=== PATIENT | female | born 1950 | race Caucasian/White ===

== ENCOUNTER 2019-11-15 12:35 | Inpatient (IN) ==
[2019-11-15] MEDS ORDERED: DEXTROSE 50% 25 GM/50 ML VIAL IV PRN ×2 (16:55→17:25)
[2019-11-15] MEDS ORDERED: GLUCAGON 1 MG VIAL IM PRN (16:55)
[2019-11-15] MEDS ORDERED: POTASSIUM CHLORIDE 20 MEQ TABLET PO ONE (17:43)
[2019-11-15 18:14] LABS: Ferritin 366.5 ng/ml (8-252)
[2019-11-15] MEDS: INSULIN REGULAR 100 UNIT/ML SUBCUT SCH (20:28)
[2019-11-15] MEDS: ENOXAPARIN 30 MG/0.3 ML SYRINGE SUBCUT SCH (21:30)
[2019-11-15] MEDS: DOCUSATE SODIUM 100 MG CAPSULE PO PRN (21:30)
[2019-11-16] MEDS ORDERED: methylPREDNISolone SOD SUC 40 MG/1 ML VIAL IV ONE (03:56)
[2019-11-16] MEDS: ALBUTEROL INHALER 18 GM INH SCH ×3 (06:35→18:13)
[2019-11-16] MEDS: INSULIN REGULAR 100 UNIT/ML SUBCUT SCH ×4 (07:41→20:38)
[2019-11-16] MEDS: ASCORBIC ACID 500 MG TABLET PO SCH (08:29)
[2019-11-16] MEDS: DEXAMETHASONE 10 MG/1 ML VIAL IV SCH (08:29)
[2019-11-16] MEDS: ZINC SULFATE 220 MG CAPSULE PO SCH (08:29)
[2019-11-16] MEDS ORDERED: AZITHROMYCIN INJ 500 MG in SODIUM CHLORIDE 0.9% 250 ML IV SCH (09:00)
[2019-11-16] MEDS: cefTRIAXone 1,000 MG in SYRINGE 1 EACH IV SCH (09:36)
[2019-11-16 10:02] LABS: Basophils % 0.2 % (0.0-0.8); Hematocrit 23.1 VOL% (35.7-47.0); Hemoglobin 7.4 GM/DL (12.0-16.0); Immature Granulocytes % 0.9 %; Immature Granulocytes Absolute 0.12 #; Lymphocytes # 0.3 10*3/uL (1.4-4.0); Lymphocytes % 1.9 % (21.3-54.2); Mean Corpuscular Volume 89.5 FL (87-102); Mean Platelet Volume 9.4 FL (9.6-12.0); Monocytes % 2.2 % (1.7-12.7); Neutrophils % 94.8 % (38.7-73.9); Platelet Count 332 T/CUMM (130-400); Red Blood Count 2.58 MC/CUMM (3.8-5.5); Red Cell Distribution Width 14.2 % (9.3-17.3); White Blood Count 12.9 T/CUMM (4-12)
[2019-11-16 10:26] LABS: Band Neutrophils 5 % (0-10); Hypochromasia 1+; Lymphocytes 2 % (20-55); Segmented Neutrophils 92 % (50-85); Total Cells Counted 100
[2019-11-16 10:27] LABS: Microcytosis 1+; Platelet Estimate Normal
[2019-11-16 10:40] LABS: Albumin 2.4 G/DL (3.4-5.0); Bilirubin,Total 0.5 MG/DL (0.2-1.0); Calcium 9.1 MG/DL (8.5-10.1); Ferritin 406.6 ng/ml (8-252); Osmolality,Calculated 288.2 MOS/KG (273-304); Total Protein 7.4 G/DL (6.4-8.3)
[2019-11-16] MEDS: POTASSIUM CHLORIDE 20 MEQ TABLET PO PRN ×3 (11:45→16:52)
[2019-11-16] MEDS: ENOXAPARIN 30 MG/0.3 ML SYRINGE SUBCUT SCH (20:39)
[2019-11-16] MEDS: ZALEPLON 5 MG CAPSULE PO PRN ×2 (21:23→22:49)
[2019-11-16] MEDS ORDERED: LORazepam 2 MG/1 ML VIAL IV ONE (22:55)
[2019-11-17] MEDS: ALBUTEROL INHALER 18 GM INH SCH ×4 (00:57→20:24)
[2019-11-17] MEDS: ACETAMINOPHEN 325 MG TABLET PO PRN (01:37)
[2019-11-17] MEDS: ZINC SULFATE 220 MG CAPSULE PO SCH (09:20)
[2019-11-17] MEDS: ASCORBIC ACID 500 MG TABLET PO SCH (09:20)
[2019-11-17] MEDS: INSULIN REGULAR 100 UNIT/ML SUBCUT SCH ×4 (09:21→20:30)
[2019-11-17] MEDS: DEXAMETHASONE 10 MG/1 ML VIAL IV SCH (09:21)
[2019-11-17] MEDS: cefTRIAXone 1,000 MG in SYRINGE 1 EACH IV SCH (09:22)
[2019-11-17] MEDS ORDERED: SODIUM CHLORIDE 0.9% 1,000 ML IV PRN (12:02)
[2019-11-17 13:35] LABS: Hematocrit 25.2 VOL% (35.7-47.0); Hemoglobin 8.1 GM/DL (12.0-16.0)
[2019-11-17 14:00] LABS: % Iron Saturation 6.4 % (18-50)
[2019-11-17] MEDS ORDERED: LORazepam 1 MG TABLET PO ONE (16:53)
[2019-11-17 20:01] LABS: ABG Base Excess 3.2 MMOL/L (-2.5-2.5); ABG HCO3 27.3 MMOL/L (20-26); ABG PCO2 54.3 MM HG (35-48); ABG PH 7.345 (7.35-7.45); ABG TCO2 27.8 MMOL/L (23-27)
[2019-11-17] MEDS: ENOXAPARIN 30 MG/0.3 ML SYRINGE SUBCUT SCH (20:24)
[2019-11-17] MEDS ORDERED: LORazepam 2 MG/1 ML VIAL IV ONE (22:42)
[2019-11-18] MEDS: ALBUTEROL INHALER 18 GM INH SCH ×3 (00:59→19:41)
[2019-11-18 05:48] LABS: Basophils % 0.1 % (0.0-0.8); Hematocrit 24.8 VOL% (35.7-47.0); Hemoglobin 7.7 GM/DL (12.0-16.0); Immature Granulocytes % 2.3 %; Immature Granulocytes Absolute 0.36 #; Lymphocytes # 0.5 10*3/uL (1.4-4.0); Lymphocytes % 3.1 % (21.3-54.2); Mean Corpuscular Volume 92.2 FL (87-102); Mean Platelet Volume 9.5 FL (9.6-12.0); Monocytes % 4.1 % (1.7-12.7); Neutrophils % 90.4 % (38.7-73.9); Platelet Count 501 T/CUMM (130-400); Red Blood Count 2.69 MC/CUMM (3.8-5.5); Red Cell Distribution Width 14.7 % (9.3-17.3); White Blood Count 15.7 T/CUMM (4-12)
[2019-11-18 06:00] LABS: Calcium 9.9 MG/DL (8.5-10.1); Osmolality,Calculated 304.3 MOS/KG (273-304)
[2019-11-18 06:07] LABS: Band Neutrophils 1 % (0-10); Hypochromasia 2+; Lymphocytes 2 % (20-55); Microcytosis 1+; Platelet Estimate Increased; Segmented Neutrophils 95 % (50-85); Total Cells Counted 100
[2019-11-18] MEDS: INSULIN REGULAR 100 UNIT/ML SUBCUT SCH ×4 (08:32→21:26)
[2019-11-18] MEDS: DEXAMETHASONE 10 MG/1 ML VIAL IV SCH (08:32)
[2019-11-18] MEDS: ZINC SULFATE 220 MG CAPSULE PO SCH (08:33)
[2019-11-18] MEDS: AZITHROMYCIN 250 MG TABLET PO SCH (08:33)
[2019-11-18] MEDS: ASCORBIC ACID 500 MG TABLET PO SCH (08:33)
[2019-11-18 09:48] LABS: ABG Base Excess 3.7 MMOL/L (-2.5-2.5); ABG HCO3 27.7 MMOL/L (20-26); ABG Oxygen Saturation 93.2 % (95-100); ABG PCO2 48.1 MM HG (35-48); ABG PH 7.392 (7.35-7.45); ABG PO2 69.1 MM HG (80-95); ABG TCO2 27.3 MMOL/L (23-27)
[2019-11-18 10:18] LABS: ABG Base Excess 3.5 MMOL/L (-2.5-2.5); ABG HCO3 27.6 MMOL/L (20-26); ABG Oxygen Saturation 94.3 % (95-100); ABG PCO2 45.2 MM HG (35-48); ABG PH 7.409 (7.35-7.45); ABG PO2 70.1 MM HG (80-95); ABG TCO2 26.8 MMOL/L (23-27)
[2019-11-18] MEDS: cefTRIAXone 1,000 MG in SYRINGE 1 EACH IV SCH (10:30)
[2019-11-18 11:18] LABS: Amorphous Crystals,Urine Occasional /HPF (Few); Bacteria,Urine Few /HPF (Few); Bilirubin,Urine Negative (Negative); Blood, Urine Small mg/dL (Negative); Glucose,Urine (UA) Negative (Negative); Ketones,Urine Negative (Negative); Mucus,Urine Occasional /LPF (Occasional); Nitrite,Urine Negative (Negative); Protein,Urine 100 MG/DL; RBC,Urine 11 /HPF (0-4); Urine Appearance CLOUDY (Clear); Urine Specific Gravity 1.018 (1.001-1.035)
[2019-11-18 11:19] LABS: Urine Color Yellow (Yellow)
[2019-11-18] MEDS: HALOPERIDOL 5 MG/ML AMP IM PRN ×2 (12:45→21:26)
[2019-11-18] MEDS: calcitrioL 0.25 MCG CAPSULE PO SCH (13:56)
[2019-11-18] MEDS: PANTOPRAZOLE 40 MG VIAL IV SCH (13:58)
[2019-11-18] MEDS: HEPARIN 5,000 UNIT/1 ML VIAL SUBCUT SCH ×2 (14:28→21:25)
[2019-11-18] MEDS ORDERED: FUROSEMIDE 40 MG/4 ML VIAL IV ONE (15:43)
[2019-11-18] MEDS: GABAPENTIN 600 MG TABLET PO SCH (20:00)
[2019-11-18] MEDS: ROSUVASTATIN 10 MG TABLET PO SCH (20:00)
[2019-11-18] MEDS: tiZANidine 4 MG TABLET PO SCH (20:00)
[2019-11-18] MEDS: carvediloL 6.25 MG TABLET PO SCH (20:00)
[2019-11-18] MEDS: MECLIZINE 25 MG TABLET PO SCH (20:00)
[2019-11-18] MEDS: FAMOTIDINE 20 MG TABLET PO SCH (20:00)
[2019-11-18] MEDS: TAMSULOSIN 0.4 MG CAPSULE PO SCH (20:00)
[2019-11-18] MEDS: allopurinoL 100 MG TABLET PO SCH (20:00)
[2019-11-18] MEDS: METOPROLOL TARTRATE 5 MG/5 ML VIAL IV PRN (23:09)
[2019-11-19] MEDS: ALBUTEROL INHALER 18 GM INH SCH ×4 (00:51→19:51)
[2019-11-19] MEDS: HALOPERIDOL 5 MG/ML AMP IM PRN ×4 (03:26→21:17)
[2019-11-19 04:40] LABS: Basophils % 0.3 % (0.0-0.8); Eosinophils % 0.1 % (0.00-10.9); Hematocrit 24.6 VOL% (35.7-47.0); Hemoglobin 7.8 GM/DL (12.0-16.0); Immature Granulocytes % 7.7 %; Immature Granulocytes Absolute 1.15 #; Lymphocytes # 0.7 10*3/uL (1.4-4.0); Lymphocytes % 4.6 % (21.3-54.2); Mean Corpuscular HGB Conc 31.7 GM/DL (32-36); Mean Corpuscular Volume 91.4 FL (87-102); Mean Platelet Volume 9.8 FL (9.6-12.0); Monocytes % 3.5 % (1.7-12.7); NRBC # 0.06 10*3/uL; Neutrophils % 83.8 % (38.7-73.9); Platelet Count 459 T/CUMM (130-400); Red Blood Count 2.69 MC/CUMM (3.8-5.5); Red Cell Distribution Width 14.9 % (9.3-17.3)
[2019-11-19 05:03] LABS: Band Neutrophils 2 % (0-10); Hypochromasia 2+; Lymphocytes 6 % (20-55); Microcytosis 1+; Platelet Estimate Adequate; Segmented Neutrophils 88 % (50-85); Total Cells Counted 100
[2019-11-19 05:07] LABS: Calcium 9.7 MG/DL (8.5-10.1); Osmolality,Calculated 327.6 MOS/KG (273-304)
[2019-11-19] MEDS: HEPARIN 5,000 UNIT/1 ML VIAL SUBCUT SCH ×3 (05:54→21:18)
[2019-11-19] MEDS: METOPROLOL TARTRATE 5 MG/5 ML VIAL IV PRN ×2 (08:07→14:13)
[2019-11-19] MEDS: INSULIN REGULAR 100 UNIT/ML SUBCUT SCH ×4 (08:26→21:17)
[2019-11-19 08:37] LABS: ABG Base Excess -1.3 MMOL/L (-2.5-2.5); ABG HCO3 23.3 MMOL/L (20-26); ABG Oxygen Saturation 95.9 % (95-100); ABG PCO2 28.8 MM HG (35-48); ABG PH 7.481 (7.35-7.45); ABG PO2 79.8 MM HG (80-95); Pt O2 Delivery Device Other
[2019-11-19] MEDS ORDERED: FUROSEMIDE 40 MG TABLET PO SCH (09:00)
[2019-11-19] MEDS ORDERED: hydroCHLOROthiazide 25 MG TABLET PO SCH (09:00)
[2019-11-19] MEDS: ESCITALOPRAM 10 MG TABLET PO SCH (09:46)
[2019-11-19] MEDS: MECLIZINE 25 MG TABLET PO SCH ×2 (09:46→20:14)
[2019-11-19] MEDS: glipiZIDE 10 MG TABLET PO SCH (09:46)
[2019-11-19] MEDS: carvediloL 6.25 MG TABLET PO SCH ×2 (09:46→20:14)
[2019-11-19] MEDS: GABAPENTIN 600 MG TABLET PO SCH ×2 (09:46→20:14)
[2019-11-19] MEDS: ASCORBIC ACID 500 MG TABLET PO SCH (09:46)
[2019-11-19] MEDS: ASPIRIN EC 81 MG TABLET PO SCH (09:47)
[2019-11-19] MEDS: ZINC SULFATE 220 MG CAPSULE PO SCH (09:47)
[2019-11-19] MEDS: allopurinoL 100 MG TABLET PO SCH ×2 (09:47→20:14)
[2019-11-19] MEDS: PANTOPRAZOLE 40 MG VIAL IV SCH (10:34)
[2019-11-19] MEDS: DEXAMETHASONE 10 MG/1 ML VIAL IV SCH (10:34)
[2019-11-19] MEDS: cefTRIAXone 1,000 MG in SYRINGE 1 EACH IV SCH (10:34)
[2019-11-19] MEDS: AZITHROMYCIN 250 MG TABLET PO SCH (12:47)
[2019-11-19] MEDS: CLOPIDOGREL 75 MG TABLET PO SCH (12:47)
[2019-11-19] MEDS ORDERED: ACETAMINOPHEN 650 MG SUPP RECTAL ONE (14:40)
[2019-11-19] MEDS: ROSUVASTATIN 10 MG TABLET PO SCH (20:14)
[2019-11-19] MEDS: FAMOTIDINE 20 MG TABLET PO SCH (20:14)
[2019-11-19] MEDS: TAMSULOSIN 0.4 MG CAPSULE PO SCH (20:14)
[2019-11-19] MEDS: tiZANidine 4 MG TABLET PO SCH (20:14)
[2019-11-20] MEDS: ALBUTEROL INHALER 18 GM INH SCH ×3 (01:04→14:54)
[2019-11-20] MEDS: HALOPERIDOL 5 MG/ML AMP IM PRN (02:25)
[2019-11-20 03:48] LABS: ABG Base Excess 3.5 MMOL/L (-2.5-2.5); ABG HCO3 27.4 MMOL/L (20-26); ABG Oxygen Saturation 87.4 % (95-100); ABG PCO2 33.2 MM HG (35-48); ABG PH 7.508 (7.35-7.45); ABG PO2 55.5 MM HG (80-95); ABG TCO2 24.6 MMOL/L (23-27); Allen Test Positive; Pt O2 Delivery Device Other
[2019-11-20 05:01] LABS: Basophils # 0.1 10*3/uL (0.0-0.2); Basophils % 0.3 % (0.0-0.8); Hematocrit 27.8 VOL% (35.7-47.0); Hemoglobin 8.6 GM/DL (12.0-16.0); Immature Granulocytes % 11.4 %; Immature Granulocytes Absolute 1.96 #; Lymphocytes # 1.1 10*3/uL (1.4-4.0); Lymphocytes % 6.3 % (21.3-54.2); Mean Corpuscular HGB Conc 30.9 GM/DL (32-36); Mean Corpuscular Volume 93.6 FL (87-102); Mean Platelet Volume 10.3 FL (9.6-12.0); Monocytes % 3.4 % (1.7-12.7); NRBC # 0.19 10*3/uL; Neutrophils % 78.6 % (38.7-73.9); Platelet Count 460 T/CUMM (130-400); Red Blood Count 2.97 MC/CUMM (3.8-5.5); Red Cell Distribution Width 15.1 % (9.3-17.3); White Blood Count 17.2 T/CUMM (4-12)
[2019-11-20 05:21] LABS: Osmolality,Calculated 342.9 MOS/KG (273-304)
[2019-11-20 05:32] LABS: Band Neutrophils 1 % (0-10); Hypochromasia 1+; Lymphocytes 7 % (20-55); Microcytosis 1+; Nucleated Red Blood Cells 1 (0-5); Platelet Estimate Adequate; Segmented Neutrophils 90 % (50-85); Total Cells Counted 100
[2019-11-20] MEDS: HEPARIN 5,000 UNIT/1 ML VIAL SUBCUT SCH ×3 (06:03→22:36)
[2019-11-20] MEDS: PANTOPRAZOLE 40 MG VIAL IV SCH (08:30)
[2019-11-20] MEDS: DEXAMETHASONE 10 MG/1 ML VIAL IV SCH (08:31)
[2019-11-20] MEDS: INSULIN REGULAR 100 UNIT/ML SUBCUT SCH ×4 (09:05→23:39)
[2019-11-20] MEDS: SODIUM CHLORIDE 0.45% 1,000 ML IV SCH ×2 (09:12→21:13)
[2019-11-20] MEDS: cefTRIAXone 1,000 MG in SYRINGE 1 EACH IV SCH (09:58)
[2019-11-20] MEDS ORDERED: ETOMIDATE 20 MG/10 ML VIAL IV ONE ×2 (10:34→11:00)
[2019-11-20] MEDS ORDERED: SUCCINYLCHOLINE 200 MG/10 ML VIAL ONE (10:35)
[2019-11-20] MEDS ORDERED: SUCCINYLCHOLINE 200 MG/10 ML VIAL IV ONE (11:00)
[2019-11-20 12:23] LABS: Allen Test Positive; Pt O2 Delivery Device Ventilator
[2019-11-20 12:24] LABS: ABG Base Excess 1.7 MMOL/L (-2.5-2.5); ABG PCO2 40.4 MM HG (35-48); ABG PH 7.421 (7.35-7.45); ABG TCO2 23.8 MMOL/L (23-27)
[2019-11-20] MEDS: MECLIZINE 25 MG TABLET PO SCH ×2 (12:38→22:29)
[2019-11-20] MEDS: ZINC SULFATE 220 MG CAPSULE PO SCH (12:38)
[2019-11-20] MEDS: CLOPIDOGREL 75 MG TABLET PO SCH (12:38)
[2019-11-20] MEDS: ASPIRIN EC 81 MG TABLET PO SCH (12:39)
[2019-11-20] MEDS: carvediloL 6.25 MG TABLET PO SCH ×2 (12:39→22:27)
[2019-11-20] MEDS: allopurinoL 100 MG TABLET PO SCH ×2 (12:39→22:26)
[2019-11-20] MEDS: ASCORBIC ACID 500 MG TABLET PO SCH (12:39)
[2019-11-20] MEDS: GABAPENTIN 600 MG TABLET PO SCH ×2 (12:39→22:27)
[2019-11-20] MEDS: glipiZIDE 10 MG TABLET PO SCH (12:39)
[2019-11-20] MEDS: ESCITALOPRAM 10 MG TABLET PO SCH (12:39)
[2019-11-20] MEDS: calcitrioL 0.25 MCG CAPSULE PO SCH (12:39)
[2019-11-20] MEDS: AZITHROMYCIN 250 MG TABLET PO SCH (13:28)
[2019-11-20] MEDS: FAMOTIDINE 20 MG TABLET PO SCH (22:27)
[2019-11-20] MEDS: DOCUSATE SODIUM 100 MG CAPSULE PO PRN (22:28)
[2019-11-20] MEDS: TAMSULOSIN 0.4 MG CAPSULE PO SCH (22:28)
[2019-11-20] MEDS: tiZANidine 4 MG TABLET PO SCH (22:28)
[2019-11-20] MEDS: ROSUVASTATIN 10 MG TABLET PO SCH (22:29)
[2019-11-20] MEDS: ACETAMINOPHEN 325 MG TABLET PO PRN (23:10)
[2019-11-20] MEDS ORDERED: SODIUM CHLORIDE 0.45% 1,000 ML IV ONE (23:29)
[2019-11-20] MEDS ORDERED: ALBUMIN 5% 25 GM in PREMIX 1 EACH IV ONE (23:56)
[2019-11-21] MEDS ORDERED: NOREPINEPHRINE 4 MG/4 ML VIAL IV ONE (00:10)
[2019-11-21] MEDS: NOREPINEPHRINE 8 MG in SODIUM CHLORIDE 0.9% 242 ML IV PRN ×2 (00:20→09:09)
[2019-11-21 04:28] LABS: Basophils # 0.1 10*3/uL (0.0-0.2); Basophils % 0.3 % (0.0-0.8); Hematocrit 25.6 VOL% (35.7-47.0); Hemoglobin 7.9 GM/DL (12.0-16.0); Immature Granulocytes % 10.3 %; Immature Granulocytes Absolute 3.02 #; Lymphocytes # 1.7 10*3/uL (1.4-4.0); Lymphocytes % 5.6 % (21.3-54.2); Mean Corpuscular HGB Conc 30.9 GM/DL (32-36); Mean Corpuscular Volume 95.5 FL (87-102); Mean Platelet Volume 10.7 FL (9.6-12.0); Monocytes % 3.4 % (1.7-12.7); NRBC # 0.41 10*3/uL; Neutrophils % 80.4 % (38.7-73.9); Platelet Count 401 T/CUMM (130-400); Red Blood Count 2.68 MC/CUMM (3.8-5.5); White Blood Count 29.3 T/CUMM (4-12)
[2019-11-21 04:42] LABS: ABG Base Excess 0.1 MMOL/L (-2.5-2.5); ABG HCO3 24.6 MMOL/L (20-26); ABG Oxygen Saturation 99.3 % (95-100); ABG PH 7.426 (7.35-7.45); ABG TCO2 22.7 MMOL/L (23-27); Allen Test Positive; Pt O2 Delivery Device Ventilator
[2019-11-21 04:46] LABS: Calcium 8.4 MG/DL (8.5-10.1); Osmolality,Calculated 343.1 MOS/KG (273-304)
[2019-11-21 06:00] LABS: Anisocytosis Slight; Band Neutrophils 3 % (0-10); Lymphocytes 7 % (20-55); Macrocytosis Slight; Metamyelocytes 3 %; Nucleated Red Blood Cells 3 (0-5); Platelet Estimate Normal; Segmented Neutrophils 82 % (50-85); Total Cells Counted 100
[2019-11-21] MEDS: ALBUTEROL INHALER 18 GM INH SCH ×5 (06:18→18:03)
[2019-11-21] MEDS: HEPARIN 5,000 UNIT/1 ML VIAL SUBCUT SCH ×3 (06:36→21:13)
[2019-11-21] MEDS: INSULIN REGULAR 100 UNIT/ML SUBCUT SCH ×4 (06:37→23:45)
[2019-11-21] MEDS: ASCORBIC ACID 500 MG TABLET PO SCH (09:11)
[2019-11-21] MEDS: ZINC SULFATE 220 MG CAPSULE PO SCH (09:11)
[2019-11-21] MEDS: MULTIVITAMIN (BEROCCA) TABLET PO SCH (09:11)
[2019-11-21] MEDS: allopurinoL 100 MG TABLET PO SCH ×2 (09:11→21:13)
[2019-11-21] MEDS: GABAPENTIN 600 MG TABLET PO SCH ×2 (09:12→21:13)
[2019-11-21] MEDS: carvediloL 6.25 MG TABLET PO SCH (09:12)
[2019-11-21] MEDS: MECLIZINE 25 MG TABLET PO SCH (09:12)
[2019-11-21] MEDS: ESCITALOPRAM 10 MG TABLET PO SCH (09:12)
[2019-11-21] MEDS: CLOPIDOGREL 75 MG TABLET PO SCH (09:12)
[2019-11-21] MEDS: ASPIRIN EC 81 MG TABLET PO SCH (09:12)
[2019-11-21] MEDS: PANTOPRAZOLE 40 MG VIAL IV SCH (09:13)
[2019-11-21] MEDS: DEXAMETHASONE 10 MG/1 ML VIAL IV SCH (09:13)
[2019-11-21] MEDS: INSULIN GLARGINE 100 UNIT/ML SUBCUT SCH (09:13)
[2019-11-21] MEDS: SODIUM CHLORIDE 0.45% 1,000 ML IV SCH ×2 (09:41→16:39)
[2019-11-21] MEDS: cefTRIAXone 1,000 MG in SYRINGE 1 EACH IV SCH (09:47)
[2019-11-21 14:01] LABS: Bilirubin,Urine Negative (Negative); Blood, Urine Negative (Negative); Glucose,Urine (UA) >=500 mg/dL (Negative); Hyaline Casts,Urine 6 /LPF (0-3); Ketones,Urine Negative (Negative); Nitrite,Urine Negative (Negative); Protein,Urine Negative; Urine Appearance Slightly Hazy (Clear); Urine Color Yellow (Yellow); Urine Specific Gravity 1.015 (1.001-1.035); Urine Urobilinogen < 2.0 EU/DL (0.2-1.0); WBC,Urine 3 /HPF (0-6)
[2019-11-21] MEDS: ROSUVASTATIN 10 MG TABLET PO SCH (21:13)
[2019-11-21] MEDS: TAMSULOSIN 0.4 MG CAPSULE PO SCH (21:13)
[2019-11-21] MEDS: FAMOTIDINE 20 MG TABLET PO SCH (21:14)
[2019-11-22 03:53] LABS: Basophils # 0.1 10*3/uL (0.0-0.2); Basophils % 0.3 % (0.0-0.8); Hematocrit 28.2 VOL% (35.7-47.0); Immature Granulocytes % 10.9 %; Immature Granulocytes Absolute 3.99 #; Lymphocytes # 1.6 10*3/uL (1.4-4.0); Lymphocytes % 4.3 % (21.3-54.2); Mean Corpuscular HGB Conc 31.9 GM/DL (32-36); Mean Platelet Volume 10.9 FL (9.6-12.0); Monocytes % 2.6 % (1.7-12.7); NRBC # 0.76 10*3/uL; Neutrophils % 81.9 % (38.7-73.9); Platelet Count 493 T/CUMM (130-400); Red Cell Distribution Width 14.3 % (9.3-17.3); White Blood Count 36.7 T/CUMM (4-12)
[2019-11-22 04:18] LABS: Calcium 8.1 MG/DL (8.5-10.1); Osmolality,Calculated 340.1 MOS/KG (273-304)
[2019-11-22 04:23] LABS: Albumin 2.2 G/DL (3.4-5.0); Bilirubin,Total 0.6 MG/DL (0.2-1.0); Calcium 8.3 MG/DL (8.5-10.1); Osmolality,Calculated 337.1 MOS/KG (273-304)
[2019-11-22 04:47] LABS: Allen Test Positive; Pt O2 Delivery Device Ventilator
[2019-11-22 04:49] LABS: ABG Base Excess 0.6 MMOL/L (-2.5-2.5); ABG Oxygen Saturation 96.9 % (95-100); ABG PCO2 36.1 MM HG (35-48); ABG PH 7.441 (7.35-7.45); ABG PO2 86.4 MM HG (80-95); ABG TCO2 22.7 MMOL/L (23-27)
[2019-11-22] MEDS: HEPARIN 5,000 UNIT/1 ML VIAL SUBCUT SCH (05:34)
[2019-11-22] MEDS: INSULIN REGULAR 100 UNIT/ML SUBCUT SCH ×3 (05:34→18:04)
[2019-11-22] MEDS: ALBUTEROL INHALER 18 GM INH SCH ×2 (07:23→08:08)
[2019-11-22] MEDS: INSULIN GLARGINE 100 UNIT/ML SUBCUT SCH ×2 (08:08→20:32)
[2019-11-22] MEDS: DEXAMETHASONE 10 MG/1 ML VIAL IV SCH (08:09)
[2019-11-22] MEDS: PANTOPRAZOLE 40 MG VIAL IV SCH (08:09)
[2019-11-22] MEDS: ASCORBIC ACID 500 MG TABLET PO SCH (08:10)
[2019-11-22] MEDS: ASPIRIN EC 81 MG TABLET PO SCH (08:10)
[2019-11-22] MEDS: MULTIVITAMIN (BEROCCA) TABLET PO SCH (08:10)
[2019-11-22] MEDS: CLOPIDOGREL 75 MG TABLET PO SCH (08:10)
[2019-11-22] MEDS: GABAPENTIN 600 MG TABLET PO SCH ×2 (08:10→20:33)
[2019-11-22] MEDS: ESCITALOPRAM 10 MG TABLET PO SCH (08:10)
[2019-11-22] MEDS: ZINC SULFATE 220 MG CAPSULE PO SCH (08:10)
[2019-11-22] MEDS: allopurinoL 100 MG TABLET PO SCH ×2 (08:10→20:33)
[2019-11-22] MEDS ORDERED: INSULIN GLARGINE 100 UNIT/ML SUBCUT SCH ×2 (09:00→09:15)
[2019-11-22] MEDS ORDERED: cefTRIAXone 2,000 MG in SYRINGE 1 EACH IV SCH (09:09)
[2019-11-22] MEDS ORDERED: SODIUM CHLORIDE 0.9% 1,000 ML IV ONE (09:15)
[2019-11-22 09:51] LABS: INR 1.2; PT Patient Result 12.7 SECS (9.8-11.9); Partial Thromboplastin Time 28.2 SECS (23.9-33.8)
[2019-11-22] MEDS: HEPARIN DRIP 25,000 UNITS/500 ML PREMIX IV SCH (09:58)
[2019-11-22] MEDS: LACTATED RINGERS 1,000 ML IV SCH ×2 (11:12→20:35)
[2019-11-22 11:29] LABS: Band Neutrophils 2 % (0-10); Lymphocytes 4 % (20-55); Nucleated Red Blood Cells 1 (0-5); Segmented Neutrophils 81 % (50-85); Total Cells Counted 100
[2019-11-22 11:30] LABS: Metamyelocytes 7 %; Myelocytes 4 %; Platelet Estimate Increased; Polychromasia Slight
[2019-11-22] MEDS: PIPERACILLIN/TAZOBACTAM 3,375 MG in SODIUM CHLORIDE 0.9% 100 ML IV SCH (12:25)
[2019-11-22] MEDS: FLUCONAZOLE INJ 100 MG in IV BAG 1 EACH IV SCH (12:25)
[2019-11-22 12:28] LABS: Hepatitis B Core IgM Quant 0.08 Index; Hepatitis B Surface Ag Quant < 0.10 Index; Hepatitis B Surface Ag Result Negative (Negative); Hepatitis C Virus Ab Quant 0.03 Index; Hepatitis C Virus Ab Result Negative (Negative)
[2019-11-22 13:25] LABS: Alanine Aminotransferase 660 U/L (13-56); Alkaline Phosphatase 212 U/L (45-117); Aspartate Amino Transferase 297 U/L (0-37); Bilirubin,Total < 0.39 MG/DL (0.2-1.0); Blood Urea Nitrogen 128 MG/DL (7-18); Calcium 7.9 MG/DL (8.5-10.1); Estimated Glom Filtration Rate 18 ML/MIN; Glucose 248 MG/DL (74-106); Osmolality,Calculated 334.8 MOS/KG (273-304); Total Protein 5.9 G/DL (6.4-8.3)
[2019-11-22] MEDS: TAMSULOSIN 0.4 MG CAPSULE PO SCH (20:33)
[2019-11-22] MEDS: MORPHINE 4 MG/1 ML VIAL IV PRN (21:28)
[2019-11-23] MEDS: INSULIN REGULAR 100 UNIT/ML SUBCUT SCH ×6 (00:29→21:13)
[2019-11-23] MEDS: PIPERACILLIN/TAZOBACTAM 3,375 MG in SODIUM CHLORIDE 0.9% 100 ML IV SCH ×3 (00:29→23:24)
[2019-11-23 04:40] LABS: ABG Base Excess 1.4 MMOL/L (-2.5-2.5); ABG HCO3 25.6 MMOL/L (20-26); ABG Oxygen Saturation 93.8 % (95-100); ABG PCO2 40.9 MM HG (35-48); ABG PH 7.412 (7.35-7.45); ABG PO2 69.6 MM HG (80-95); ABG TCO2 24.3 MMOL/L (23-27); Allen Test Positive; Pt O2 Delivery Device Ventilator
[2019-11-23] MEDS: NOREPINEPHRINE 8 MG in SODIUM CHLORIDE 0.9% 242 ML IV PRN (05:04)
[2019-11-23] MEDS: MORPHINE 4 MG/1 ML VIAL IV PRN (05:06)
[2019-11-23 05:45] LABS: Basophils # 0.1 10*3/uL (0.0-0.2); Basophils % 0.3 % (0.0-0.8); Hematocrit 25.3 VOL% (35.7-47.0); Immature Granulocytes % 11.9 %; Immature Granulocytes Absolute 4.72 #; Lymphocytes # 1.5 10*3/uL (1.4-4.0); Lymphocytes % 3.7 % (21.3-54.2); Mean Corpuscular HGB Conc 31.6 GM/DL (32-36); Mean Corpuscular Volume 93.4 FL (87-102); Monocytes % 2.9 % (1.7-12.7); Neutrophils % 81.2 % (38.7-73.9); Platelet Count 400 T/CUMM (130-400); Red Blood Count 2.71 MC/CUMM (3.8-5.5); Red Cell Distribution Width 14.5 % (9.3-17.3); White Blood Count 39.7 T/CUMM (4-12)
[2019-11-23 05:58] LABS: INR 1.3; PT Patient Result 13.3 SECS (9.8-11.9)
[2019-11-23 06:14] LABS: Lymphocytes 7 % (20-55); Nucleated Red Blood Cells 1 (0-5); Segmented Neutrophils 84 % (50-85); Total Cells Counted 100
[2019-11-23 06:15] LABS: Hypochromasia 1+; Microcytosis 1+; Platelet Estimate Adequate
[2019-11-23 06:20] LABS: Bilirubin,Total 0.6 MG/DL (0.2-1.0); Calcium 8.3 MG/DL (8.5-10.1); Osmolality,Calculated 328.8 MOS/KG (273-304); Total Protein 5.9 G/DL (6.4-8.3)
[2019-11-23] MEDS: LACTATED RINGERS 1,000 ML IV SCH ×3 (06:55→19:48)
[2019-11-23] MEDS: PANTOPRAZOLE 40 MG VIAL IV SCH (08:26)
[2019-11-23] MEDS: MULTIVITAMIN (BEROCCA) TABLET PO SCH (08:27)
[2019-11-23] MEDS: DEXAMETHASONE 10 MG/1 ML VIAL IV SCH (08:27)
[2019-11-23] MEDS: INSULIN GLARGINE 100 UNIT/ML SUBCUT SCH ×2 (08:27→21:13)
[2019-11-23] MEDS: ZINC SULFATE 220 MG CAPSULE PO SCH (08:28)
[2019-11-23] MEDS: allopurinoL 100 MG TABLET PO SCH ×2 (08:28→21:13)
[2019-11-23] MEDS: ESCITALOPRAM 10 MG TABLET PO SCH (08:28)
[2019-11-23] MEDS: ASCORBIC ACID 500 MG TABLET PO SCH (08:34)
[2019-11-23] MEDS: GABAPENTIN 50 MG/ML 30 ML/BOTTLE PO SCH ×2 (08:37→21:13)
[2019-11-23] MEDS: HEPARIN DRIP 25,000 UNITS/500 ML PREMIX IV SCH ×2 (10:58→15:41)
[2019-11-23] MEDS: CLOPIDOGREL 75 MG TABLET PO SCH (10:58)
[2019-11-23] MEDS: ASPIRIN CHEW 81 MG TABLET PO SCH (10:58)
[2019-11-23] MEDS: FLUCONAZOLE INJ 100 MG in IV BAG 1 EACH IV SCH (11:08)
[2019-11-23 11:47] LABS: INR 1.2; PT Patient Result 12.7 SECS (9.8-11.9); Partial Thromboplastin Time 55.5 SECS (23.9-33.8)
[2019-11-23] MEDS: calcitrioL 0.25 MCG CAPSULE PO SCH (16:17)
[2019-11-23] MEDS ORDERED: DEXMEDETOMIDINE 400 MCG in SODIUM CHLORIDE 0.9% 96 ML IV PRN (18:52)
[2019-11-23] MEDS: TAMSULOSIN 0.4 MG CAPSULE PO SCH (21:13)
[2019-11-23] MEDS ORDERED: PHENYLEPHRINE DRIP 40 MG/250 ML PREMIX IV ONE (23:54)
[2019-11-24 00:15] LABS: Basophils # 0.1 10*3/uL (0.0-0.2); Basophils % 0.1 % (0.0-0.8); Immature Granulocytes % 9.1 %; Immature Granulocytes Absolute 4.03 #; Lymphocytes # 3.7 10*3/uL (1.4-4.0); Lymphocytes % 8.4 % (21.3-54.2); Mean Corpuscular HGB Conc 29.9 GM/DL (32-36); Mean Platelet Volume 11.3 FL (9.6-12.0); Monocytes % 2.1 % (1.7-12.7); NRBC # 0.54 10*3/uL; Neutrophils % 80.3 % (38.7-73.9); Platelet Count 390 T/CUMM (130-400); Red Blood Count 1.69 MC/CUMM (3.8-5.5); Red Cell Distribution Width 14.8 % (9.3-17.3)
[2019-11-24] MEDS: PHENYLEPHRINE DRIP 40 MG/250 ML PREMIX IV PRN ×3 (00:21→04:29)
[2019-11-24 00:23] LABS: White Blood Count 44.3 T/CUMM (4-12)
[2019-11-24 00:24] LABS: Hematocrit 16.4 VOL% (35.7-47.0); Hemoglobin 4.9 GM/DL (12.0-16.0)
[2019-11-24 00:28] LABS: INR 1.3; PT Patient Result 13.8 SECS (9.8-11.9); Partial Thromboplastin Time 86.8 SECS (23.9-33.8)
[2019-11-24] MEDS ORDERED: SODIUM CHLORIDE 0.9% 1,000 ML IV PRN ×2 (00:28→00:58)
[2019-11-24 00:47] LABS: Calcium 7.9 MG/DL (8.5-10.1); Osmolality,Calculated 333.8 MOS/KG (273-304)
[2019-11-24] MEDS ORDERED: INSULIN REGULAR 100 UNIT/ML IV ONE (00:54)
[2019-11-24] MEDS ORDERED: CALCIUM GLUCONATE 2,000 MG in SODIUM CHLORIDE 0.9% 100 ML IV ONE (00:54)
[2019-11-24] MEDS ORDERED: SODIUM BICARBONATE 50 MEQ/50 ML VIAL IV ONE ×4 (00:54→00:56)
[2019-11-24] MEDS ORDERED: DEXTROSE 50% 25 GM/50 ML VIAL IV ONE (00:54)
[2019-11-24] MEDS ORDERED: CALCIUM GLUCONATE 1,000 MG in SODIUM CHLORIDE 0.9% 100 ML IV STA (00:57)
[2019-11-24] MEDS ORDERED: SODIUM CHLORIDE 0.9% 1,000 ML IV ONE ×3 (01:21→01:24)
[2019-11-24] MEDS ORDERED: LACTATED RINGERS 1,000 ML IV ONE ×2 (01:26)
[2019-11-24] MEDS: INSULIN REGULAR 100 UNIT/ML SUBCUT SCH ×5 (01:28→17:08)
[2019-11-24] MEDS: NOREPINEPHRINE 16 MG in SODIUM CHLORIDE 0.9% 234 ML IV PRN ×3 (02:04→19:12)
[2019-11-24] MEDS: FUROSEMIDE 40 MG/4 ML VIAL IV PRN ×4 (02:17→03:47)
[2019-11-24 02:52] LABS: Band Neutrophils 4 % (0-10); Lymphocytes 11 % (20-55); Macrocytosis Slight; Nucleated Red Blood Cells 1 (0-5); Platelet Estimate Increased; Polychromasia 1+; Segmented Neutrophils 84 % (50-85); Total Cells Counted 100
[2019-11-24 02:53] LABS: Stomatocytes Few
[2019-11-24 02:54] LABS: Anisocytosis 1+
[2019-11-24 03:48] LABS: ABG Base Excess -9.4 MMOL/L (-2.5-2.5); ABG HCO3 16.2 MMOL/L (20-26); ABG Oxygen Saturation 97.7 % (95-100); ABG PCO2 34.5 MM HG (35-48); ABG PH 7.289 (7.35-7.45); ABG PO2 110.4 MM HG (80-95); ABG TCO2 17.2 MMOL/L (23-27)
[2019-11-24 04:04] LABS: Basophils # 0.3 10*3/uL (0.0-0.2); Basophils % 0.7 % (0.0-0.8); Hematocrit 39.5 VOL% (35.7-47.0); Hemoglobin 12.9 GM/DL (12.0-16.0); Immature Granulocytes % 8.6 %; Immature Granulocytes Absolute 3.99 #; Lymphocytes # 1.3 10*3/uL (1.4-4.0); Lymphocytes % 2.7 % (21.3-54.2); Mean Corpuscular HGB Conc 32.7 GM/DL (32-36); Mean Corpuscular Volume 91.6 FL (87-102); Mean Platelet Volume 10.9 FL (9.6-12.0); Monocytes % 4.1 % (1.7-12.7); NRBC # 0.66 10*3/uL; Neutrophils % 83.9 % (38.7-73.9); Platelet Count 236 T/CUMM (130-400); Red Blood Count 4.31 MC/CUMM (3.8-5.5); Red Cell Distribution Width 15.1 % (9.3-17.3)
[2019-11-24 04:14] LABS: White Blood Count 46.3 T/CUMM (4-12)
[2019-11-24 04:25] LABS: Band Neutrophils 1 % (0-10); Lymphocytes 3 % (20-55); Macrocytosis Slight; Nucleated Red Blood Cells 1 (0-5); Platelet Estimate Adequate; Polychromasia Slight; Segmented Neutrophils 90 % (50-85); Total Cells Counted 100
[2019-11-24 04:35] LABS: Albumin 1.3 G/DL (3.4-5.0); Bilirubin,Total 0.8 MG/DL (0.2-1.0); Calcium 6.5 MG/DL (8.5-10.1); Osmolality,Calculated 335.1 MOS/KG (273-304); Total Protein 3.6 G/DL (6.4-8.3)
[2019-11-24 05:07] LABS: Hematocrit 39.9 VOL% (35.7-47.0); Hemoglobin 13.4 GM/DL (12.0-16.0)
[2019-11-24] MEDS: ACETAMINOPHEN 325 MG TABLET PO PRN ×2 (06:41→14:08)
[2019-11-24] MEDS ORDERED: PHENYLEPHRINE INJ 80 MG in SODIUM CHLORIDE 0.9% 242 ML IV PRN (07:27)
[2019-11-24] MEDS: PANTOPRAZOLE 40 MG VIAL IV SCH (08:01)
[2019-11-24] MEDS: DEXAMETHASONE 10 MG/1 ML VIAL IV SCH (08:01)
[2019-11-24] MEDS: ESCITALOPRAM 10 MG TABLET PO SCH (08:02)
[2019-11-24] MEDS: INSULIN GLARGINE 100 UNIT/ML SUBCUT SCH ×2 (08:02→22:17)
[2019-11-24] MEDS: MULTIVITAMIN (BEROCCA) TABLET PO SCH (08:02)
[2019-11-24] MEDS: ASCORBIC ACID 500 MG TABLET PO SCH (08:02)
[2019-11-24] MEDS: allopurinoL 100 MG TABLET PO SCH (08:03)
[2019-11-24] MEDS: ZINC SULFATE 220 MG CAPSULE PO SCH (08:03)
[2019-11-24] MEDS: ALBUMIN 25% 12.5 GM in PREMIX 1 EACH IV SCH ×2 (10:22→17:18)
[2019-11-24] MEDS: HEPARIN DRIP 25,000 UNITS/500 ML PREMIX IV SCH (10:33)
[2019-11-24] MEDS: GABAPENTIN 50 MG/ML 30 ML/BOTTLE PO SCH (10:34)
[2019-11-24] MEDS: ASPIRIN CHEW 81 MG TABLET PO SCH (10:35)
[2019-11-24] MEDS: CLOPIDOGREL 75 MG TABLET PO SCH (10:35)
[2019-11-24] MEDS ORDERED: EPINEPHrine 1 MG/10 ML SYRINGE ONE (10:39)
[2019-11-24] MEDS ORDERED: CALCIUM CHLORIDE 1,000 MG/10 ML SYRINGE IV ONE (10:39)
[2019-11-24] MEDS ORDERED: SODIUM BICARBONATE 10 MEQ/10 ML SYRINGE IV ONE (10:39)
[2019-11-24] MEDS ORDERED: CALCIUM GLUCONATE 1,000 MG in SODIUM CHLORIDE 0.9% 100 ML IV ONE (11:30)
[2019-11-24] MEDS: FLUCONAZOLE INJ 100 MG in IV BAG 1 EACH IV SCH (12:20)
[2019-11-24] MEDS: VANCOMYCIN INJ 1,500 MG in SODIUM CHLORIDE 0.9% 500 ML IV SCH (14:07)
[2019-11-24] MEDS: PIPERACILLIN/TAZOBACTAM 3,375 MG in SODIUM CHLORIDE 0.9% 100 ML IV SCH (15:41)
[2019-11-24] MEDS ORDERED: IBUPROFEN 600 MG TABLET PO PRN (15:59)
[2019-11-24 21:56] LABS: ABG Base Excess -0.9 MMOL/L (-2.5-2.5); ABG HCO3 23.7 MMOL/L (20-26); ABG Oxygen Saturation 98.6 % (95-100); ABG PCO2 31.7 MM HG (35-48); ABG PH 7.454 (7.35-7.45); ABG TCO2 19.8 MMOL/L (23-27)
[2019-11-24 22:10] LABS: Basophils # 0.1 10*3/uL (0.0-0.2); Basophils % 0.3 % (0.0-0.8); Hematocrit 33.1 VOL% (35.7-47.0); Immature Granulocytes % 5.2 %; Immature Granulocytes Absolute 2.15 #; Lymphocytes # 2.4 10*3/uL (1.4-4.0); Lymphocytes % 5.7 % (21.3-54.2); Mean Corpuscular HGB Conc 33.2 GM/DL (32-36); Mean Corpuscular Volume 89.7 FL (87-102); Mean Platelet Volume 11.7 FL (9.6-12.0); Monocytes % 3.9 % (1.7-12.7); NRBC # 0.74 10*3/uL; Neutrophils % 84.9 % (38.7-73.9); Platelet Count 150 T/CUMM (130-400); Red Blood Count 3.69 MC/CUMM (3.8-5.5); Red Cell Distribution Width 15.1 % (9.3-17.3)
[2019-11-24 22:30] LABS: Alanine Aminotransferase 998 U/L (13-56); Albumin 1.9 G/DL (3.4-5.0); Alkaline Phosphatase 113 U/L (45-117); Aspartate Amino Transferase 1739 U/L (0-37); Blood Urea Nitrogen 120 MG/DL (7-18); Calcium 7.6 MG/DL (8.5-10.1); Estimated Glom Filtration Rate 17 ML/MIN; Glucose 93 MG/DL (74-106); Osmolality,Calculated 338.7 MOS/KG (273-304); Total Protein 4.1 G/DL (6.4-8.3)
[2019-11-25] MEDS ORDERED: SODIUM CHLORIDE 0.45% 1,000 ML IV SCH (00:30)
[2019-11-25] MEDS: INSULIN REGULAR 100 UNIT/ML SUBCUT SCH ×7 (00:31→20:48)
[2019-11-25] MEDS: GABAPENTIN 50 MG/ML 30 ML/BOTTLE PO SCH ×3 (00:32→20:02)
[2019-11-25] MEDS: TAMSULOSIN 0.4 MG CAPSULE PO SCH ×2 (00:32→20:01)
[2019-11-25] MEDS: allopurinoL 100 MG TABLET PO SCH ×3 (00:33→20:01)
[2019-11-25] MEDS: ALBUMIN 25% 12.5 GM in PREMIX 1 EACH IV SCH ×3 (03:30→18:37)
[2019-11-25 03:51] LABS: Band Neutrophils 3 % (0-10); Lymphocytes 6 % (20-55); Metamyelocytes 4 %; Myelocytes 1 %; Nucleated Red Blood Cells 4 (0-5); Platelet Estimate Adequate; Segmented Neutrophils 81 % (50-85); Total Cells Counted 100
[2019-11-25 05:15] LABS: ABG HCO3 21.9 MMOL/L (20-26); ABG PCO2 34.1 MM HG (35-48); ABG PH 7.426 (7.35-7.45); ABG PO2 135.6 MM HG (80-95)
[2019-11-25 05:22] LABS: Basophils # 0.1 10*3/uL (0.0-0.2); Basophils % 0.2 % (0.0-0.8); Hematocrit 25.7 VOL% (35.7-47.0); Immature Granulocytes % 5.2 %; Lymphocytes # 1.5 10*3/uL (1.4-4.0); Lymphocytes % 5.3 % (21.3-54.2); Mean Corpuscular HGB Conc 33.1 GM/DL (32-36); Mean Corpuscular Volume 91.1 FL (87-102); Mean Platelet Volume 11.6 FL (9.6-12.0); Monocytes % 3.7 % (1.7-12.7); NRBC # 0.24 10*3/uL; Neutrophils % 85.6 % (38.7-73.9); Red Cell Distribution Width 15.4 % (9.3-17.3); White Blood Count 28.7 T/CUMM (4-12)
[2019-11-25 05:29] LABS: Red Blood Count 2.82 MC/CUMM (3.8-5.5)
[2019-11-25 05:30] LABS: Hemoglobin 8.5 GM/DL (12.0-16.0)
[2019-11-25 05:31] LABS: Platelet Count 114 T/CUMM (130-400)
[2019-11-25 05:46] LABS: Hypochromasia 1+; Lymphocytes 7 % (20-55); Macrocytosis Slight; Nucleated Red Blood Cells 3 (0-5); Platelet Estimate Decreased; Polychromasia Slight; Segmented Neutrophils 92 % (50-85); Total Cells Counted 100
[2019-11-25] MEDS: PIPERACILLIN/TAZOBACTAM 3,375 MG in SODIUM CHLORIDE 0.9% 100 ML IV SCH ×2 (05:47→15:45)
[2019-11-25 06:10] LABS: Albumin 1.4 G/DL (3.4-5.0); Bilirubin,Total 1.5 MG/DL (0.2-1.0); Osmolality,Calculated 327.7 MOS/KG (273-304); Total Protein 2.7 G/DL (6.4-8.3)
[2019-11-25 06:13] LABS: Calcium 5.3 MG/DL (8.5-10.1)
[2019-11-25] MEDS ORDERED: CALCIUM GLUCONATE 1,000 MG in SODIUM CHLORIDE 0.9% 100 ML IV ONE (06:19)
[2019-11-25] MEDS: NOREPINEPHRINE 16 MG in SODIUM CHLORIDE 0.9% 234 ML IV PRN (07:34)
[2019-11-25] MEDS: MULTIVITAMIN (BEROCCA) TABLET PO SCH (08:42)
[2019-11-25] MEDS: ESCITALOPRAM 10 MG TABLET PO SCH (08:42)
[2019-11-25] MEDS: ASCORBIC ACID 500 MG TABLET PO SCH (08:42)
[2019-11-25] MEDS: CLOPIDOGREL 75 MG TABLET PO SCH (08:42)
[2019-11-25] MEDS: ASPIRIN CHEW 81 MG TABLET PO SCH (08:43)
[2019-11-25] MEDS: DEXAMETHASONE 10 MG/1 ML VIAL IV SCH (08:43)
[2019-11-25] MEDS: PANTOPRAZOLE 40 MG VIAL IV SCH (08:43)
[2019-11-25] MEDS: ZINC SULFATE 220 MG CAPSULE PO SCH (08:43)
[2019-11-25] MEDS: INSULIN GLARGINE 100 UNIT/ML SUBCUT SCH ×2 (08:44→20:01)
[2019-11-25] MEDS: HEPARIN DRIP 25,000 UNITS/500 ML PREMIX IV SCH (08:45)
[2019-11-25] MEDS: SODIUM CHLORIDE 23.4% CONC INJ 38.5 MEQ in STERILE WATER INJ 1,000 ML IV SCH ×2 (10:20→20:49)
[2019-11-25] MEDS: FLUCONAZOLE INJ 100 MG in IV BAG 1 EACH IV SCH (10:26)
[2019-11-25] MEDS: calcitrioL 0.25 MCG CAPSULE PO SCH (12:53)
[2019-11-26] MEDS: INSULIN REGULAR 100 UNIT/ML SUBCUT SCH ×7 (01:12→23:24)
[2019-11-26] MEDS: ALBUMIN 25% 12.5 GM in PREMIX 1 EACH IV SCH ×3 (01:54→17:43)
[2019-11-26] MEDS: PIPERACILLIN/TAZOBACTAM 3,375 MG in SODIUM CHLORIDE 0.9% 100 ML IV SCH (03:20)
[2019-11-26 04:16] LABS: ABG HCO3 21.1 MMOL/L (20-26); ABG Oxygen Saturation 99.7 % (95-100); ABG PCO2 40.5 MM HG (35-48); ABG PH 7.333 (7.35-7.45); ABG TCO2 20.5 MMOL/L (23-27)
[2019-11-26 04:26] LABS: Basophils % 0.1 % (0.0-0.8); Hematocrit 20.2 VOL% (35.7-47.0); Hemoglobin 6.6 GM/DL (12.0-16.0); Immature Granulocytes % 3.7 %; Lymphocytes # 0.5 10*3/uL (1.4-4.0); Lymphocytes % 2.3 % (21.3-54.2); Mean Corpuscular HGB Conc 32.7 GM/DL (32-36); Mean Corpuscular Volume 92.7 FL (87-102); Mean Platelet Volume 12.2 FL (9.6-12.0); Monocytes % 2.6 % (1.7-12.7); NRBC # 0.07 10*3/uL; Neutrophils % 91.3 % (38.7-73.9); Platelet Count 79 T/CUMM (130-400); Red Blood Count 2.18 MC/CUMM (3.8-5.5); Red Cell Distribution Width 15.3 % (9.3-17.3); White Blood Count 21.5 T/CUMM (4-12)
[2019-11-26 04:49] LABS: Calcium 7.5 MG/DL (8.5-10.1); Osmolality,Calculated 318.4 MOS/KG (273-304)
[2019-11-26 05:03] LABS: Hypochromasia 2+; Lymphocytes 1 % (20-55); Microcytosis Slight; Platelet Estimate Decreased; Segmented Neutrophils 97 % (50-85); Total Cells Counted 100
[2019-11-26] MEDS: SODIUM CHLORIDE 23.4% CONC INJ 38.5 MEQ in STERILE WATER INJ 1,000 ML IV SCH (07:09)
[2019-11-26] MEDS: DEXAMETHASONE 10 MG/1 ML VIAL IV SCH (08:09)
[2019-11-26] MEDS: allopurinoL 100 MG TABLET PO SCH ×2 (08:10→20:07)
[2019-11-26] MEDS: ASCORBIC ACID 500 MG TABLET PO SCH (08:10)
[2019-11-26] MEDS: ZINC SULFATE 220 MG CAPSULE PO SCH (08:10)
[2019-11-26] MEDS: MULTIVITAMIN (BEROCCA) TABLET PO SCH (08:10)
[2019-11-26] MEDS: GABAPENTIN 50 MG/ML 30 ML/BOTTLE PO SCH ×2 (08:11→20:07)
[2019-11-26] MEDS: ESCITALOPRAM 10 MG TABLET PO SCH (08:12)
[2019-11-26] MEDS ORDERED: FUROSEMIDE 40 MG/4 ML VIAL IV ONE (08:34)
[2019-11-26] MEDS: INSULIN GLARGINE 100 UNIT/ML SUBCUT SCH ×2 (08:47→20:06)
[2019-11-26] MEDS ORDERED: SODIUM CHLORIDE 0.9% 1,000 ML IV PRN (09:28)
[2019-11-26] MEDS: VANCOMYCIN INJ 1,500 MG in SODIUM CHLORIDE 0.9% 500 ML IV SCH (10:00)
[2019-11-26] MEDS: FLUCONAZOLE INJ 100 MG in IV BAG 1 EACH IV SCH (10:25)
[2019-11-26] MEDS: CALCIUM GLUCONATE 1,000 MG in SODIUM CHLORIDE 0.9% 100 ML IV ONE ×2 (10:41→10:52)
[2019-11-26] MEDS ORDERED: LEVOFLOXACIN INJ 750 MG in PREMIX 1 EACH IV ONE ×2 (11:00→13:00)
[2019-11-26] MEDS: fentaNYL INJ 1,250 MCG in SODIUM CHLORIDE 0.9% 225 ML IV PRN ×2 (11:38→20:05)
[2019-11-26] MEDS: TAMSULOSIN 0.4 MG CAPSULE PO SCH (20:07)
[2019-11-26 21:50] LABS: ABG Base Excess -5.6 MMOL/L (-2.5-2.5); ABG HCO3 19.7 MMOL/L (20-26); ABG Oxygen Saturation 90.4 % (95-100); ABG PCO2 47.8 MM HG (35-48); ABG PH 7.257 (7.35-7.45); ABG PO2 67.4 MM HG (80-95); ABG TCO2 20.3 MMOL/L (23-27)
[2019-11-26] MEDS: fentaNYL INJ 2,500 MCG in SODIUM CHLORIDE 0.9% 450 ML IV PRN (23:26)
[2019-11-27] MEDS: ALBUMIN 25% 12.5 GM in PREMIX 1 EACH IV SCH ×2 (01:39→09:47)
[2019-11-27] MEDS: SODIUM CHLORIDE 23.4% CONC INJ 38.5 MEQ in STERILE WATER INJ 1,000 ML IV SCH ×2 (01:40→06:09)
[2019-11-27] MEDS: INSULIN REGULAR 100 UNIT/ML SUBCUT SCH ×6 (04:00→23:50)
[2019-11-27 04:02] LABS: ABG Base Excess -6.1 MMOL/L (-2.5-2.5); ABG HCO3 19.3 MMOL/L (20-26); ABG Oxygen Saturation 95.2 % (95-100); ABG PCO2 44.2 MM HG (35-48); ABG PH 7.274 (7.35-7.45); ABG PO2 81.3 MM HG (80-95); ABG TCO2 19.4 MMOL/L (23-27)
[2019-11-27 04:06] LABS: Basophils % 0.1 % (0.0-0.8); Hematocrit 21.4 VOL% (35.7-47.0); Hemoglobin 6.9 GM/DL (12.0-16.0); Immature Granulocytes % 5.9 %; Immature Granulocytes Absolute 1.17 #; Lymphocytes # 0.3 10*3/uL (1.4-4.0); Lymphocytes % 1.4 % (21.3-54.2); Mean Corpuscular HGB Conc 32.2 GM/DL (32-36); Mean Corpuscular Volume 92.2 FL (87-102); Mean Platelet Volume 11.5 FL (9.6-12.0); Monocytes % 3.3 % (1.7-12.7); NRBC # 0.06 10*3/uL; Neutrophils % 89.3 % (38.7-73.9); Red Blood Count 2.32 MC/CUMM (3.8-5.5); Red Cell Distribution Width 15.2 % (9.3-17.3); White Blood Count 19.8 T/CUMM (4-12)
[2019-11-27 04:17] LABS: Platelet Count 71 T/CUMM (130-400)
[2019-11-27 04:21] LABS: Albumin 2.4 G/DL (3.4-5.0); Calcium 7.6 MG/DL (8.5-10.1); Osmolality,Calculated 313.5 MOS/KG (273-304); Total Protein 4.3 G/DL (6.4-8.3)
[2019-11-27] MEDS: fentaNYL INJ 2,500 MCG in SODIUM CHLORIDE 0.9% 450 ML IV PRN ×3 (04:30→19:54)
[2019-11-27 04:34] LABS: Hypochromasia Slight; Lymphocytes 2 % (20-55); Microcytosis 1+; Nucleated Red Blood Cells 2 (0-5); Polychromasia Slight; Segmented Neutrophils 96 % (50-85); Total Cells Counted 100
[2019-11-27 04:35] LABS: Platelet Estimate Decreased
[2019-11-27] MEDS ORDERED: FUROSEMIDE 40 MG/4 ML VIAL IV ONE ×3 (08:29→15:06)
[2019-11-27] MEDS ORDERED: SODIUM CHLORIDE 0.9% 1,000 ML IV PRN (09:13)
[2019-11-27] MEDS: DEXAMETHASONE 10 MG/1 ML VIAL IV SCH (09:47)
[2019-11-27] MEDS: GABAPENTIN 50 MG/ML 30 ML/BOTTLE PO SCH ×2 (09:48→20:01)
[2019-11-27] MEDS: MULTIVITAMIN (BEROCCA) TABLET PO SCH (09:52)
[2019-11-27] MEDS: ZINC SULFATE 220 MG CAPSULE PO SCH (09:52)
[2019-11-27] MEDS: allopurinoL 100 MG TABLET PO SCH ×2 (09:52→20:00)
[2019-11-27] MEDS: ESCITALOPRAM 10 MG TABLET PO SCH (09:52)
[2019-11-27] MEDS: ASCORBIC ACID 500 MG TABLET PO SCH (09:52)
[2019-11-27] MEDS: INSULIN GLARGINE 100 UNIT/ML SUBCUT SCH ×2 (10:02→19:59)
[2019-11-27] MEDS: FLUCONAZOLE INJ 100 MG in IV BAG 1 EACH IV SCH (10:03)
[2019-11-27] MEDS ORDERED: METOCLOPRAMIDE 10 MG/2 ML VIAL ONE (10:46)
[2019-11-27] MEDS: METOCLOPRAMIDE 10 MG/2 ML VIAL IV SCH ×2 (11:23→18:09)
[2019-11-27] MEDS ORDERED: ALBUTEROL/IPRATROPIUM 3 ML NEB RESP TX SCH (13:00)
[2019-11-27] MEDS: calcitrioL 0.25 MCG CAPSULE PO SCH (15:27)
[2019-11-27] MEDS: TAMSULOSIN 0.4 MG CAPSULE PO SCH (20:00)
[2019-11-28] MEDS: METOCLOPRAMIDE 10 MG/2 ML VIAL IV SCH ×4 (00:03→18:07)
[2019-11-28] MEDS: fentaNYL INJ 2,500 MCG in SODIUM CHLORIDE 0.9% 450 ML IV PRN ×3 (01:36→17:24)
[2019-11-28 04:12] LABS: ABG Base Excess -8.3 MMOL/L (-2.5-2.5); ABG HCO3 19.7 MMOL/L (20-26); ABG PCO2 49.5 MM HG (35-48); ABG PH 7.217 (7.35-7.45); ABG PO2 55.9 MM HG (80-95); ABG TCO2 21.2 MMOL/L (23-27)
[2019-11-28 04:13] LABS: ABG Oxygen Saturation 82.8 % (95-100)
[2019-11-28 04:40] LABS: Basophils % 0.2 % (0.0-0.8); Hematocrit 30.3 VOL% (35.7-47.0); Immature Granulocytes % 4.1 %; Immature Granulocytes Absolute 0.78 #; Lymphocytes # 0.4 10*3/uL (1.4-4.0); Lymphocytes % 1.9 % (21.3-54.2); Mean Corpuscular HGB Conc 33.3 GM/DL (32-36); Mean Corpuscular Volume 91.3 FL (87-102); Mean Platelet Volume 11.9 FL (9.6-12.0); Monocytes % 3.1 % (1.7-12.7); NRBC # 0.04 10*3/uL; Neutrophils % 90.7 % (38.7-73.9); Platelet Count 68 T/CUMM (130-400); Red Blood Count 3.32 MC/CUMM (3.8-5.5); Red Cell Distribution Width 15.7 % (9.3-17.3)
[2019-11-28 04:43] LABS: Hemoglobin 10.1 GM/DL (12.0-16.0)
[2019-11-28 05:02] LABS: Albumin 2.1 G/DL (3.4-5.0); Bilirubin,Total 0.8 MG/DL (0.2-1.0); Calcium 7.9 MG/DL (8.5-10.1); Osmolality,Calculated 311.8 MOS/KG (273-304); Total Protein 4.8 G/DL (6.4-8.3)
[2019-11-28 05:13] VITALS: BP 122/61
[2019-11-28 05:18] LABS: Band Neutrophils 1 % (0-10); Hypochromasia Slight; Lymphocytes 3 % (20-55); Myelocytes 1 %; Nucleated Red Blood Cells 2 (0-5); Platelet Estimate Decreased; Segmented Neutrophils 92 % (50-85); Total Cells Counted 100
[2019-11-28] MEDS: INSULIN REGULAR 100 UNIT/ML SUBCUT SCH ×5 (05:34→20:27)
[2019-11-28] MEDS ORDERED: FUROSEMIDE 100 MG/10 ML VIAL IV ONE (08:47)
[2019-11-28] MEDS: MULTIVITAMIN (BEROCCA) TABLET PO SCH (08:51)
[2019-11-28] MEDS: INSULIN GLARGINE 100 UNIT/ML SUBCUT SCH ×2 (08:51→20:28)
[2019-11-28] MEDS: LEVOFLOXACIN INJ 500 MG in PREMIX 1 EACH IV SCH (08:51)
[2019-11-28] MEDS: ZINC SULFATE 220 MG CAPSULE PO SCH (08:51)
[2019-11-28] MEDS: ESCITALOPRAM 10 MG TABLET PO SCH (08:51)
[2019-11-28] MEDS: GABAPENTIN 50 MG/ML 30 ML/BOTTLE PO SCH ×2 (08:51→20:29)
[2019-11-28] MEDS: allopurinoL 100 MG TABLET PO SCH ×2 (08:51→20:27)
[2019-11-28] MEDS ORDERED: SODIUM BICARBONATE 50 MEQ/50 ML VIAL IV ONE (09:11)
[2019-11-28] MEDS: VANCOMYCIN INJ 1,500 MG in SODIUM CHLORIDE 0.9% 500 ML IV SCH (10:50)
[2019-11-28] MEDS: DEXAMETHASONE 10 MG/1 ML VIAL IV SCH (10:52)
[2019-11-28] MEDS: ASCORBIC ACID 500 MG TABLET PO SCH (11:11)
[2019-11-28] MEDS: FLUCONAZOLE INJ 100 MG in IV BAG 1 EACH IV SCH (13:17)
[2019-11-28] MEDS: fentaNYL INJ 2,500 MCG in SODIUM CHLORIDE 0.9% 75 ML IV PRN ×2 (17:26→22:50)
[2019-11-28] MEDS: TAMSULOSIN 0.4 MG CAPSULE PO SCH (20:28)
[2019-11-29] MEDS: INSULIN REGULAR 100 UNIT/ML SUBCUT SCH ×6 (00:19→20:07)
[2019-11-29] MEDS: METOCLOPRAMIDE 10 MG/2 ML VIAL IV SCH ×4 (00:20→18:05)
[2019-11-29 04:09] LABS: ABG Base Excess -8.3 MMOL/L (-2.5-2.5); ABG HCO3 18.1 MMOL/L (20-26); ABG Oxygen Saturation 93.2 % (95-100); ABG PCO2 40.7 MM HG (35-48); ABG PH 7.266 (7.35-7.45); ABG PO2 75.1 MM HG (80-95); ABG TCO2 19.4 MMOL/L (23-27)
[2019-11-29 04:13] LABS: Basophils % 0.1 % (0.0-0.8); Hematocrit 28.1 VOL% (35.7-47.0); Hemoglobin 9.3 GM/DL (12.0-16.0); Immature Granulocytes % 1.6 %; Immature Granulocytes Absolute 0.23 #; Lymphocytes # 0.2 10*3/uL (1.4-4.0); Mean Corpuscular HGB Conc 33.1 GM/DL (32-36); Mean Corpuscular Volume 90.9 FL (87-102); Mean Platelet Volume 11.8 FL (9.6-12.0); Monocytes % 2.3 % (1.7-12.7); NRBC # 0.03 10*3/uL; Red Blood Count 3.09 MC/CUMM (3.8-5.5); White Blood Count 14.5 T/CUMM (4-12)
[2019-11-29 04:17] LABS: Platelet Count 78 T/CUMM (130-400)
[2019-11-29 04:28] LABS: Albumin 1.7 G/DL (3.4-5.0); Bilirubin,Total 0.6 MG/DL (0.2-1.0); Calcium 8.2 MG/DL (8.5-10.1); Osmolality,Calculated 318.8 MOS/KG (273-304); Total Protein 4.4 G/DL (6.4-8.3)
[2019-11-29 04:34] LABS: Lymphocytes 2 % (20-55); Platelet Estimate Decreased; Segmented Neutrophils 95 % (50-85); Total Cells Counted 100
[2019-11-29 04:35] LABS: Hypochromasia 1+; Microcytosis 1+
[2019-11-29 04:42] LABS: INR 1.2
[2019-11-29 04:44] LABS: PT Patient Result 13.1 SECS (9.8-11.9); Partial Thromboplastin Time 36.4 SECS (23.9-33.8)
[2019-11-29] MEDS: MULTIVITAMIN (BEROCCA) TABLET PO SCH (08:03)
[2019-11-29] MEDS: GABAPENTIN 50 MG/ML 30 ML/BOTTLE PO SCH ×2 (08:03→20:30)
[2019-11-29] MEDS: ESCITALOPRAM 10 MG TABLET PO SCH (08:03)
[2019-11-29] MEDS: ZINC SULFATE 220 MG CAPSULE PO SCH (08:03)
[2019-11-29] MEDS: ASCORBIC ACID 500 MG TABLET PO SCH (08:03)
[2019-11-29] MEDS: allopurinoL 100 MG TABLET PO SCH ×2 (08:03→20:08)
[2019-11-29] MEDS: DEXAMETHASONE 10 MG/1 ML VIAL IV SCH (08:09)
[2019-11-29] MEDS ORDERED: SODIUM BICARBONATE 50 MEQ/50 ML VIAL IV ONE (09:01)
[2019-11-29] MEDS: INSULIN GLARGINE 100 UNIT/ML SUBCUT SCH ×2 (09:55→20:08)
[2019-11-29] MEDS: SODIUM ZIRCONIUM CYCLOSILICATE 10 GM PACK PO SCH (09:57)
[2019-11-29] MEDS: ALBUMIN 25% 12.5 GM in PREMIX 1 EACH IV SCH ×2 (10:30→18:00)
[2019-11-29] MEDS: FUROSEMIDE 40 MG/4 ML VIAL IV SCH ×3 (12:30→22:08)
[2019-11-29] MEDS: TAMSULOSIN 0.4 MG CAPSULE PO SCH (20:08)
[2019-11-29] MEDS: fentaNYL INJ 2,500 MCG in SODIUM CHLORIDE 0.9% 75 ML IV PRN (20:11)
[2019-11-30] MEDS: INSULIN REGULAR 100 UNIT/ML SUBCUT SCH ×6 (00:12→21:06)
[2019-11-30] MEDS: METOCLOPRAMIDE 10 MG/2 ML VIAL IV SCH ×4 (00:12→17:32)
[2019-11-30] MEDS: ALBUMIN 25% 12.5 GM in PREMIX 1 EACH IV SCH ×3 (01:23→17:33)
[2019-11-30 05:29] LABS: ABG HCO3 17.9 MMOL/L (20-26); ABG Oxygen Saturation 96.1 % (95-100); ABG PCO2 41.9 MM HG (35-48); ABG PH 7.257 (7.35-7.45); ABG PO2 90.6 MM HG (80-95); ABG TCO2 17.5 MMOL/L (23-27)
[2019-11-30] MEDS: FUROSEMIDE 40 MG/4 ML VIAL IV SCH ×3 (05:35→21:31)
[2019-11-30 05:48] LABS: Basophils % 0.1 % (0.0-0.8); Hematocrit 27.8 VOL% (35.7-47.0); Hemoglobin 8.7 GM/DL (12.0-16.0); Immature Granulocytes % 2.2 %; Immature Granulocytes Absolute 0.17 #; Lymphocytes # 0.1 10*3/uL (1.4-4.0); Lymphocytes % 1.1 % (21.3-54.2); Mean Corpuscular HGB Conc 31.3 GM/DL (32-36); Mean Corpuscular Volume 94.9 FL (87-102); Mean Platelet Volume 11.7 FL (9.6-12.0); Monocytes % 2.8 % (1.7-12.7); NRBC # 0.03 10*3/uL; Neutrophils % 93.8 % (38.7-73.9); Platelet Count 76 T/CUMM (130-400); Red Blood Count 2.93 MC/CUMM (3.8-5.5); Red Cell Distribution Width 16.7 % (9.3-17.3); White Blood Count 7.6 T/CUMM (4-12)
[2019-11-30 06:11] LABS: Calcium 8.1 MG/DL (8.5-10.1); Total Protein 4.6 G/DL (6.4-8.3)
[2019-11-30 06:19] LABS: Anisocytosis 1+; Band Neutrophils 2 % (0-10); Lymphocytes 7 % (20-55); Macrocytosis 1+; Nucleated Red Blood Cells 1 (0-5); Platelet Estimate Decreased; Poikilocytosis Slight; Segmented Neutrophils 90 % (50-85); Total Cells Counted 100
[2019-11-30] MEDS ORDERED: DEXTROSE 50% 25 GM/50 ML VIAL IV ONE (07:58)
[2019-11-30] MEDS ORDERED: INSULIN REGULAR 100 UNIT/ML IV ONE (07:58)
[2019-11-30] MEDS: ZINC SULFATE 220 MG CAPSULE PO SCH (08:11)
[2019-11-30] MEDS: allopurinoL 100 MG TABLET PO SCH ×2 (08:11→20:35)
[2019-11-30] MEDS: MULTIVITAMIN (BEROCCA) TABLET PO SCH (08:11)
[2019-11-30] MEDS: ASCORBIC ACID 500 MG TABLET PO SCH (08:11)
[2019-11-30] MEDS: ESCITALOPRAM 10 MG TABLET PO SCH (08:12)
[2019-11-30] MEDS: GABAPENTIN 50 MG/ML 30 ML/BOTTLE PO SCH ×2 (08:12→20:36)
[2019-11-30] MEDS: LEVOFLOXACIN INJ 500 MG in PREMIX 1 EACH IV SCH (08:14)
[2019-11-30] MEDS ORDERED: CALCIUM GLUCONATE 1,000 MG in SODIUM CHLORIDE 0.9% 100 ML IV ONE (08:30)
[2019-11-30] MEDS: DEXAMETHASONE 10 MG/1 ML VIAL IV SCH (08:51)
[2019-11-30] MEDS: INSULIN GLARGINE 100 UNIT/ML SUBCUT SCH ×2 (08:52→20:37)
[2019-11-30] MEDS: SODIUM ZIRCONIUM CYCLOSILICATE 10 GM PACK PO SCH ×3 (09:14→20:35)
[2019-11-30] MEDS ORDERED: SODIUM POLYSTYRENE SULFATE 15 GM/60 ML BOTTLE PO ONE (10:29)
[2019-11-30] MEDS: FAMOTIDINE 20 MG/2 ML VIAL IV SCH (12:12)
[2019-11-30] MEDS: calcitrioL 0.25 MCG CAPSULE PO SCH (12:12)
[2019-11-30] MEDS: fentaNYL INJ 2,500 MCG in SODIUM CHLORIDE 0.9% 75 ML IV PRN (17:36)
[2019-11-30] MEDS: TAMSULOSIN 0.4 MG CAPSULE PO SCH (20:35)
[2019-11-30] MEDS: ZINC OXIDE PASTE 113 GM TUBE TOP SCH (20:37)
[2019-12-01] MEDS: METOCLOPRAMIDE 10 MG/2 ML VIAL IV SCH ×4 (00:20→17:33)
[2019-12-01] MEDS: INSULIN REGULAR 100 UNIT/ML SUBCUT SCH ×6 (00:20→20:45)
[2019-12-01] MEDS: ALBUMIN 25% 12.5 GM in PREMIX 1 EACH IV SCH ×3 (01:52→17:32)
[2019-12-01 04:08] LABS: ABG Base Excess -10.5 MMOL/L (-2.5-2.5); ABG Oxygen Saturation 93.4 % (95-100); ABG PCO2 39.9 MM HG (35-48); ABG PH 7.227 (7.35-7.45); ABG PO2 77.5 MM HG (80-95); ABG TCO2 15.5 MMOL/L (23-27)
[2019-12-01 04:21] LABS: Basophils % 0.1 % (0.0-0.8); Hematocrit 30.6 VOL% (35.7-47.0); Hemoglobin 9.9 GM/DL (12.0-16.0); Immature Granulocytes Absolute 0.08 #; Lymphocytes # 0.1 10*3/uL (1.4-4.0); Lymphocytes % 1.4 % (21.3-54.2); Mean Corpuscular HGB Conc 32.4 GM/DL (32-36); Mean Corpuscular Volume 91.9 FL (87-102); Mean Platelet Volume 11.9 FL (9.6-12.0); Monocytes % 2.1 % (1.7-12.7); NRBC # 0.05 10*3/uL; Neutrophils % 95.4 % (38.7-73.9); Red Blood Count 3.33 MC/CUMM (3.8-5.5); Red Cell Distribution Width 16.9 % (9.3-17.3); White Blood Count 7.7 T/CUMM (4-12)
[2019-12-01 04:24] LABS: Platelet Count 70 T/CUMM (130-400)
[2019-12-01 04:50] LABS: Band Neutrophils 3 % (0-10); Lymphocytes 5 % (20-55); Metamyelocytes 2 %; Microcytosis 1+; Polychromasia Slight; Segmented Neutrophils 86 % (50-85); Tear Drop Cells Slight; Total Cells Counted 100
[2019-12-01 04:51] LABS: Hypochromasia Slight; Platelet Estimate Decreased
[2019-12-01 05:21] LABS: Albumin 2.4 G/DL (3.4-5.0); Bilirubin,Total 1.2 MG/DL (0.2-1.0); Calcium 8.1 MG/DL (8.5-10.1); Osmolality,Calculated 325.8 MOS/KG (273-304); Total Protein 4.9 G/DL (6.4-8.3)
[2019-12-01] MEDS: FUROSEMIDE 40 MG/4 ML VIAL IV SCH (05:51)
[2019-12-01] MEDS ORDERED: INSULIN REGULAR 100 UNIT/ML IV ONE (08:05)
[2019-12-01] MEDS ORDERED: DEXTROSE 50% 25 GM/50 ML VIAL IV ONE (08:05)
[2019-12-01] MEDS ORDERED: SODIUM BICARBONATE 50 MEQ/50 ML VIAL IV ONE (08:05)
[2019-12-01] MEDS ORDERED: FUROSEMIDE 40 MG/4 ML VIAL IV ONE (08:19)
[2019-12-01] MEDS: INSULIN GLARGINE 100 UNIT/ML SUBCUT SCH ×2 (08:20→20:22)
[2019-12-01] MEDS: MULTIVITAMIN (BEROCCA) TABLET PO SCH (08:21)
[2019-12-01] MEDS: ZINC SULFATE 220 MG CAPSULE PO SCH (08:21)
[2019-12-01] MEDS: ZINC OXIDE PASTE 113 GM TUBE TOP SCH ×2 (08:21→20:23)
[2019-12-01] MEDS: ESCITALOPRAM 10 MG TABLET PO SCH (08:21)
[2019-12-01] MEDS: ASCORBIC ACID 500 MG TABLET PO SCH (08:21)
[2019-12-01] MEDS: GABAPENTIN 50 MG/ML 30 ML/BOTTLE PO SCH ×2 (08:21→20:23)
[2019-12-01] MEDS: allopurinoL 100 MG TABLET PO SCH ×2 (08:22→20:21)
[2019-12-01] MEDS: DEXAMETHASONE 10 MG/1 ML VIAL IV SCH (08:29)
[2019-12-01] MEDS ORDERED: CALCIUM GLUCONATE 1,000 MG in SODIUM CHLORIDE 0.9% 100 ML IV ONE (08:30)
[2019-12-01] MEDS ORDERED: FUROSEMIDE 100 MG/10 ML VIAL ONE (08:50)
[2019-12-01] MEDS: SODIUM ZIRCONIUM CYCLOSILICATE 10 GM PACK PO SCH ×3 (09:37→20:22)
[2019-12-01] MEDS: NOREPINEPHRINE 8 MG in SODIUM CHLORIDE 0.9% 242 ML IV PRN (11:57)
[2019-12-01] MEDS: FAMOTIDINE 20 MG/2 ML VIAL IV SCH (11:58)
[2019-12-01] MEDS: fentaNYL INJ 2,500 MCG in SODIUM CHLORIDE 0.9% 450 ML IV PRN ×2 (15:20→15:24)
[2019-12-01] MEDS ORDERED: FUROSEMIDE 40 MG/4 ML VIAL IV SCH (16:00)
[2019-12-01] MEDS: ACETAMINOPHEN 325 MG TABLET PO PRN (20:21)
[2019-12-01] MEDS: TAMSULOSIN 0.4 MG CAPSULE PO SCH (20:22)
[2019-12-02] MEDS: METOCLOPRAMIDE 10 MG/2 ML VIAL IV SCH (00:41)
[2019-12-02] MEDS: ALBUMIN 25% 12.5 GM in PREMIX 1 EACH IV SCH (00:41)
[2019-12-02] MEDS: INSULIN REGULAR 100 UNIT/ML SUBCUT SCH (00:41)
[2019-12-02] MEDS: NOREPINEPHRINE 8 MG in SODIUM CHLORIDE 0.9% 242 ML IV PRN (01:45)
[2019-12-02] MEDS ORDERED: PHENYLEPHRINE DRIP 40 MG/250 ML PREMIX IV PRN (02:10)
[2019-12-02] MEDS ORDERED: LORazepam 2 MG/1 ML VIAL IV STA (02:10)
[2019-12-02] MEDS ORDERED: LORazepam 2 MG/1 ML VIAL ONE (02:12)
[2019-12-02] MEDS ORDERED: PHENYLEPHRINE INJ 160 MG in SODIUM CHLORIDE 0.9% 234 ML IV PRN (02:17)
[2019-12-02] MEDS ORDERED: PHENYLEPHRINE DRIP 40 MG/250 ML PREMIX IV ONE (02:18)
[2019-12-02] MEDS ORDERED: MIDAZOLAM 100 MG in SODIUM CHLORIDE 0.9% 80 ML IV PRN (02:19)
[2019-12-02 04:06] LABS: ABG Base Excess -24.8 MMOL/L (-2.5-2.5); ABG HCO3 7.2 MMOL/L (20-26); ABG Oxygen Saturation 85.6 % (95-100); ABG PCO2 40.7 MM HG (35-48); ABG PO2 80.5 MM HG (80-95); ABG TCO2 8.1 MMOL/L (23-27)
[2019-12-02 04:09] LABS: ABG PH 6.898 (7.35-7.45)
[2019-12-02] MEDS ORDERED: SODIUM BICARBONATE 50 MEQ/50 ML VIAL IV STA (04:20)
[2019-12-02] MEDS ORDERED: SODIUM BICARBONATE 50 MEQ/50 ML VIAL IV ONE (04:22)
[2019-12-02] MEDS ORDERED: NOREPINEPHRINE 16 MG in SODIUM CHLORIDE 0.9% 234 ML IV PRN (04:30)
[2019-12-02 04:59] LABS: Basophils % 0.3 % (0.0-0.8); Hematocrit 37.4 VOL% (35.7-47.0); Immature Granulocytes % 0.8 %; Immature Granulocytes Absolute 0.09 #; Lymphocytes # 0.4 10*3/uL (1.4-4.0); Lymphocytes % 3.2 % (21.3-54.2); Mean Corpuscular HGB Conc 29.9 GM/DL (32-36); Mean Corpuscular Volume 99.7 FL (87-102); Mean Platelet Volume 13.1 FL (9.6-12.0); Monocytes % 1.1 % (1.7-12.7); NRBC # 0.18 10*3/uL; Neutrophils % 94.6 % (38.7-73.9); Red Blood Count 3.75 MC/CUMM (3.8-5.5); Red Cell Distribution Width 18.2 % (9.3-17.3); White Blood Count 10.9 T/CUMM (4-12)
[2019-12-02 05:01] LABS: Hemoglobin 11.2 GM/DL (12.0-16.0); Platelet Count 71 T/CUMM (130-400)
[2019-12-02 05:11] LABS: Albumin 2.3 G/DL (3.4-5.0); Bilirubin,Total 1.2 MG/DL (0.2-1.0); Calcium 7.8 MG/DL (8.5-10.1); Ferritin 3276.9 ng/ml (8-252); Osmolality,Calculated 322.2 MOS/KG (273-304); Total Protein 4.7 G/DL (6.4-8.3)
[2019-12-02 05:18] LABS: Band Neutrophils 8 % (0-10); Lymphocytes 4 % (20-55); Macrocytosis Slight; Nucleated Red Blood Cells 1 (0-5); Platelet Estimate Decreased; Polychromasia Slight; Segmented Neutrophils 88 % (50-85); Total Cells Counted 100
== END 2019-12-02 06:27 | disposition expired | DRG 870 ==
LOC: SUATTDRO 16:31 → N.2E 16:31 → N.CC 11-18 09:46
PROVIDERS: ADMIT Internal Medicine; ATTEND Internal Medicine